=== PATIENT | female | born 1960 | race Caucasian/White ===

== ENCOUNTER → 2019-11-12 | Outpatient (CLI) | payer MEDICARE ==
--- NOTE | 2019-11-12 15:50 | Diagnostic Imaging Report ---
CT CHEST SCREENING WO TECHNIQUE: Low-dose unenhanced CT of the chest was performed according to the screening protocol. Coronal MIP and sagittal MPR reformats are created. Automatic exposure controls were utilized to keep dose as low as reasonably achievable. INDICATION: 30 pack year history of smoking. Current smoker. COMPARISON: None available. FINDINGS: Pulmonary findings: No endoluminal nodule within the trachea. No pulmonary mass or consolidation. 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 No indeterminate pulmonary nodules. Extrapulmonary findings: No axillary lymphadenopathy or pleural effusion. No mediastinal, discrete hilar or juxtaphrenic lymphadenopathy. The heart is normal in size without pericardial effusion. There are a few scattered coronary artery calcifications. Normal caliber thoracic aorta. Distal esophagus is unremarkable. Limited assessment of the upper abdomen shows prior surgical changes within the liver. No concerning focal osseous lesions. IMPRESSION: 1. Baseline CT is negative for features of clinically active lung cancer. 2. Coronary artery disease. Lung-RADS category: 1 - Negative Recommendations: Continued annual screening with low-dose CT in 12 months. Dictated by: Dictated on workstation # [id number]
== END ==
LOC: RAD 13:19
PROVIDERS: ATTEND Nurse Practitioner Family
DX: Z12.2 Encounter for screening for malignant neoplasm of respiratory organs (principal); I25.10 Atherosclerotic heart disease of native coronary artery without angina pectoris; F17.210 Nicotine dependence, cigarettes, uncomplicated